=== PATIENT | female | born 1990 | race Caucasian/White ===

== ENCOUNTER 2017-05-04 21:51 | Emergency (ER) | payer SELFPAY, MEDICAID | END 2017-05-05 04:34 | disposition left against medical advice (07) | LOC: FTE 21:51 | DX: Z53.21 Procedure and treatment not carried out due to patient leaving prior to being seen by health care provider (principal) ==

== ENCOUNTER 2018-02-11 18:18 | Emergency (ER) | payer MEDICAID | END 2018-02-11 20:37 | disposition home or self-care (01) | LOC: FTE 18:18 | DX: J20.9 Acute bronchitis, unspecified (principal) | CPT/HCPCS: 99283; Z7502 ==

== ENCOUNTER 2018-03-04 20:37 | Emergency (ER) | payer MEDICAID | END 2018-03-05 01:40 | disposition home or self-care (01) | LOC: FTE 03-05 01:40 | DX: R05 Cough (principal) | CPT/HCPCS: 71045; 99283-25 ==

== ENCOUNTER 2019-01-30 15:14 | Emergency (ER) | payer MEDICAID | END 2019-01-30 19:17 | disposition home or self-care (01) | LOC: FTE 15:14 | DX: N39.0 Urinary tract infection, site not specified (principal) | CPT/HCPCS: 76830; 76856; 80053; 81001; 84703; 85025; 99284-25 ==